=== PATIENT | male | born 1985 | race Caucasian/White ===

== ENCOUNTER 2016-08-01 22:08 | Emergency (ER) | payer OTHER ==
[~2016-08-01] VITALS: Ht 185.4 cm; Wt 122.5 kg
[~2016-08-01 22:08] MED LIST: DAYPRO600 M1 PO; FLEXERIL10 MG PO; MOTRIN800 MG PO; ROBAXIN750 MG PO; Sarafem20 MG PO; TOBREX OPHTH S2.5 ML OPH; VIBRAMYCIN100 MG PO
[2016-08-01] MEDS ORDERED: ATENOLOL25 MG PO (22:19)
[2016-08-01] MEDS ORDERED: PRILOSEC20 M1 PO (22:20)
[2016-08-01] MEDS ORDERED: CYMBALTA60 MG PO (22:20)
[2016-08-01] MEDS ORDERED: 'PARAFON FORTE500 M1 PO (22:31)
[2016-08-01] MEDS ORDERED: NAPROSYN500 MG PO (22:31)
== END 2016-08-02 00:12 | disposition home or self-care (01) ==
LOC: ED 22:08
DX: S16.1XXA Strain of muscle, fascia and tendon at neck level, initial encounter (principal); S39.012A Strain of muscle, fascia and tendon of lower back, initial encounter; Z79.899 Other long term (current) drug therapy; V89.2XXA Person injured in unspecified motor-vehicle accident, traffic, initial encounter; Y93.89 Activity, other specified; Y92.89 Other specified places as the place of occurrence of the external cause; Y99.9 Unspecified external cause status

== ENCOUNTER 2017-10-12 14:23 | Emergency (ER) | payer OTHER ==
[~2017-10-12] VITALS: Ht 182.8 cm; Wt 131.5 kg
[~2017-10-12 14:23] MED LIST changes: +'PARAFON FORTE500 M1 PO; +ATENOLOL25 MG PO; +CYMBALTA60 MG PO; +NAPROSYN500 MG PO; +PRILOSEC20 M1 PO
[2017-10-12 16:29] LABS: BASO # 0.1 10*3/uL (0.0-0.1); BASO % 0.6 % (0.0-1.0); EOS # 0.1 10*3/uL (0.0-0.4); EOS % 0.8 % (1.0-4.0); HEMATOCRIT 48.5 % (42.0-52.0); HEMOGLOBIN 16.1 g/dl (14.0-18.0); LYMPH # 1.5 10*3/uL (1.3-4.4); LYMPH % 18.1 % (27.0-41.0); MEAN CELL VOLUME 89.2 fl (80.0-94.0); MEAN CORPUSCULAR HGB 29.6 pg (27.0-31.0); MEAN CORPUSCULAR HGB CONC 33.2 g/dl (33.0-37.0); MEAN PLATELET VOLUME 10.4 fl (9.6-12.3); MONO # 0.6 10*3/uL (0.1-1.0); MONO % 7.2 % (3.0-9.0); NEUT # 6.2 10*3/uL (2.3-7.9); NEUT % 72.9 % (47.0-73.0); PLATELET COUNT AUTOMATED 154 10*3/uL (130-400); RED BLOOD COUNT 5.44 10*6/uL (4.50-5.90); WHITE BLOOD COUNT 8.5 10*3/uL (4.8-10.8)
[2017-10-12 16:46] LABS: ALBUMIN 4.3 gm/dl (3.1-4.5); ALKALINE PHOSPHATASE 67 U/L (45-117); BUN 21 mg/dl (7-24); CHLORIDE 112 mmol/L (98-107); CREATININE 1.12 mg/dL (0.70-1.30); POTASSIUM 5.4 mmol/L (3.5-5.1); SGOT/AST 27 IU/L (3-35); SGPT/ALT 48 U/L (12-78); SODIUM 142 mmol/L (136-145); TOTAL PROTEIN 7.5 gm/dL (6.4-8.2)
[2017-10-12 16:49] LABS: TROPONIN I < 0.015 ng/ml (<0.045)
[2017-10-12] MEDS ORDERED: PHENERGAN25 M3 PO (17:53)
[2017-10-12] MEDS ORDERED: Motrin,Rufen800 MG PO (17:53)
== END 2017-10-12 17:56 | disposition home or self-care (01) ==
LOC: ED 14:23
PROVIDERS: Emergency Medicine
DX: S06.0X0A Concussion without loss of consciousness, initial encounter (principal); M54.2 Cervicalgia; Z79.899 Other long term (current) drug therapy; W20.8XXA Other cause of strike by thrown, projected or falling object, initial encounter; Y93.89 Activity, other specified; Y92.89 Other specified places as the place of occurrence of the external cause; Y99.8 Other external cause status

== ENCOUNTER → 2021-08-17 | Outpatient (CLI) | payer OTHER ==
[~2021-08-17] MED LIST changes: +Motrin,Rufen800 MG PO; +PHENERGAN25 M3 PO
[2021-08-17 13:53] LABS: BASO % 0.6 % (0.0-1.0); EOS # 0.2 10*3/uL (0.0-0.4); EOS % 3.5 % (1.0-4.0); HEMATOCRIT 48.7 % (42.0-52.0); LYMPH # 1.7 10*3/uL (1.3-4.4); LYMPH % 31.8 % (27.0-41.0); MEAN CELL VOLUME 84.5 fl (80.0-94.0); MEAN CORPUSCULAR HGB 28.8 pg (27.0-31.0); MEAN CORPUSCULAR HGB CONC 34.1 g/dl (33.0-37.0); MEAN PLATELET VOLUME 9.9 fl (9.6-12.3); MONO # 0.4 10*3/uL (0.1-1.0); MONO % 7.4 % (3.0-9.0); NEUT # 3.1 10*3/uL (2.3-7.9); NEUT % 56.3 % (47.0-73.0); PLATELET COUNT AUTOMATED 209 10*3/uL (130-400); RED BLOOD COUNT 5.76 10*6/uL (4.50-5.90); RED CELL DISTRI WIDTH 13.9 % (0-14.5); RETICULOCYTE % 1.73 % (0.50-2.50); WHITE BLOOD COUNT 5.4 10*3/uL (4.8-10.8)
[2021-08-17 14:01] LABS: BILIRUBIN Negative (Negative); BLOOD Negative (Negative); CLARITY Clear (Clear); COLOR Yellow (Yellow); GLUCOSE Negative (Negative); KETONE Trace (Negative); LEUKO ESTERASE Negative (Negative); NITRITE Negative (Negative); PH 6.5 (4.5-8.0); SPECIFIC GRAVITY 1.025 (1.001-1.030)
[2021-08-17 14:13] LABS: ALKALINE PHOSPHATASE 68 U/L (45-117); BUN 13 mg/dl (7-24); CHLORIDE 108 mmol/L (98-107); CHOLESTEROL 143 mg/dL (<200); CREATININE 0.97 mg/dL (0.70-1.30); GAMMA GLUTAMYL TRANSPEPTIDASE 31 U/L (15-85); IRON 97 ug/dL (65-175); LDL CHOLESTEROL 75 mg/dL (9-159); POTASSIUM 3.7 mmol/L (3.5-5.1); SGOT/AST 15 IU/L (3-35); SGPT/ALT 39 U/L (12-78); SODIUM 140 mmol/L (136-145); TOTAL IRON BINDING CAPACITY 285 ug/dl (250-450); TOTAL PROTEIN 7.1 gm/dL (6.4-8.2); TRIGLYCERIDES 172 mg/dl (<150); URIC ACID 5.7 mg/dL (3.5-7.2)
[2021-08-17 14:19] LABS: THYROID STIM HORMONE (HS) 0.976 uIU/ml (0.358-4.75)
[2021-08-17 14:47] LABS: RBC 0-2 rbc/hpf (0-2); WBC 0-2 wbc/hpf (0-5)
[2021-08-17 15:10] LABS: VITAMIN D, 25-HYDROXY 25.1 ng/mL (30-100)
[2021-08-17 15:11] LABS: FERRITIN 187.7 ng/mL (22.0-322.0)
[2021-08-18 08:08] LABS: RHEUMATOID FACTOR <10.0 IU/mL (<14.0)
[2021-08-18 11:07] LABS: ANTI-DSDNA ANTIBODIES <1 IU/mL (0-9)
== END | disposition home or self-care (01) ==
LOC: LAB 13:29
PROVIDERS: ATTEND Family Medicine
DX: E55.9 Vitamin D deficiency, unspecified (principal); R79.89 Other specified abnormal findings of blood chemistry; R53.83 Other fatigue; R74.8 Abnormal levels of other serum enzymes; E78.5 Hyperlipidemia, unspecified